=== PATIENT | male | born 1990 | race Caucasian/White ===

== ENCOUNTER 2020-04-09 07:42 | Emergency (ER) | payer MEDICAID ==
[~2020-04-09] VITALS: Ht 172.7 cm; Wt 76.7 kg
[2020-04-09] MEDS ORDERED: ONDANSETRON HCL/PF 4 MG/2 ML VIAL IVP ONE (08:00)
[2020-04-09] MEDS ORDERED: LORAZEPAM INJ 2 MG/ML VIAL IV ONE ×2 (08:00→10:30)
[2020-04-09] MEDS ORDERED: IV NS 0.9% 1,000 ML BAG IV ONE (08:00)
--- NOTE | 2020-04-09 08:00 | NUR ---
patient came in to the er c/o "woke up feeling anxious worse now feel nausea and have pain on chest". on room air, breathing evenly and unlabored. connected to the monitor and pulse ox. will continue to monitor accordingly.
[2020-04-09] MEDS ORDERED: ONDANSETRON HCL/PF 4 MG/2 ML VIAL ONE ×2 (08:12→09:34)
[2020-04-09] MEDS ORDERED: LORAZEPAM INJ 2 MG/ML VIAL ONE ×2 (08:13→10:02)
[2020-04-09 08:18] LABS: BASOPHILS % (AUTO) 0.3 % (0.0-2.0); EOSINOPHILS % (AUTO) 0.8 % (0.0-6.0); HEMATOCRIT 48 % (39-51); HEMOGLOBIN 16.4 g/dL (13.5-17.5); LYMPHOCYTES # (AUTO) 1.8 /CMM (0.8-4.8); LYMPHOCYTES % (AUTO) 13.3 % (20.0-44.0); MEAN CORPUSCULAR HGB CONC 34 g/dl (31.0-36.0); MEAN CORPUSCULAR VOLUME 89 fL (80-96); MONOCYTES # (AUTO) 0.7 /CMM (0.1-1.30); MONOCYTES % (AUTO) 5.5 % (2.0-12.0); NEUTROPHILS # (AUTO) 10.9 /CMM (1.8-8.9); NEUTROPHILS % (AUTO) 80.1 % (43.0-81.0); PLATELET COUNT (AUTO) 340 /CMM (150-450); RED BLOOD CELL COUNT(AUTO) 5.41 MIL/uL (4.5-6.0); WHITE BLOOD COUNT (AUTO) 13.6 K/uL (4.3-11.0)
[2020-04-09 08:25] LABS: CALCIUM, SERUM 8.9 mg/dL (8.5-10.1); POTASSIUM 3.2 mmol/L (3.5-5.1)
[2020-04-09] MEDS ORDERED: ONDANSETRON HCL/PF 4 MG/2 ML VIAL IV ONE (10:00)
[2020-04-09] MEDS ORDERED: PROCHLORPERAZINE EDISYLATE 10 MG/2 ML VIAL IVP ONE (11:00)
[2020-04-09] MEDS ORDERED: IV NS 0.9% 1,000 ML IV ONE (11:00)
[2020-04-09] MEDS ORDERED: PROCHLORPERAZINE EDISYLATE 10 MG/2 ML VIAL ONE (11:17)
[2020-04-09 12:19] VITALS: BP 101/66
--- NOTE | 2020-04-09 12:19 | NUR ---
Patient discharged to home in stable condition. Written and verbal after care instructions given. Patient verbalizes understanding of instruction.IV removed. Catheter intact and site benign. Pressure and 4x4 applied to site. No bleeding noted.
[2020-04-14] MEDS ORDERED: ONDA4TAB5 PO (07:53)
== END 2020-04-09 12:19 | disposition home or self-care (01) ==
LOC: ER 07:45
DX: F41.0 Panic disorder [episodic paroxysmal anxiety] (principal); R11.10 Vomiting, unspecified; R00.2 Palpitations; R06.4 Hyperventilation
CPT/HCPCS: 36415; 80048; 85025; 96361; 96374; 96375; 96376; 99284; J0780; J2060 ×2; J2405 ×2; J7030 ×2

== ENCOUNTER 2020-04-12 08:31 | Inpatient (IN) | payer MEDICAID ==
[~2020-04-12] VITALS: Ht 170.2 cm; Wt 73.0 kg
--- NOTE | 2020-04-12 08:38 | NUR ---
came in for nausea since 429. 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
[2020-04-12] MEDS ORDERED: METOCLOPRAMIDE HCL 10 MG/2 ML VIAL ONE (08:51)
[2020-04-12] MEDS ORDERED: LORAZEPAM INJ 2 MG/ML VIAL ONE (08:51)
[2020-04-12 08:57] LABS: BASOPHILS # (AUTO) 0.1 /CMM (0.0-0.2); BASOPHILS % (AUTO) 0.5 % (0.0-2.0); EOSINOPHILS % (AUTO) 0.3 % (0.0-6.0); HEMATOCRIT 51 % (39-51); HEMOGLOBIN 16.9 g/dL (13.5-17.5); LYMPHOCYTES # (AUTO) 1.6 /CMM (0.8-4.8); LYMPHOCYTES % (AUTO) 10.5 % (20.0-44.0); MEAN CORPUSCULAR HGB CONC 33 g/dl (31.0-36.0); MEAN CORPUSCULAR VOLUME 90 fL (80-96); MONOCYTES # (AUTO) 0.8 /CMM (0.1-1.30); MONOCYTES % (AUTO) 5.5 % (2.0-12.0); NEUTROPHILS # (AUTO) 12.7 /CMM (1.8-8.9); NEUTROPHILS % (AUTO) 83.2 % (43.0-81.0); PLATELET COUNT (AUTO) 365 /CMM (150-450); WHITE BLOOD COUNT (AUTO) 15.2 K/uL (4.3-11.0)
[2020-04-12] MEDS ORDERED: LORAZEPAM INJ 2 MG/ML VIAL IV ONE (09:00)
[2020-04-12] MEDS ORDERED: METOCLOPRAMIDE HCL 10 MG/2 ML VIAL IV ONE (09:00)
[2020-04-12] MEDS ORDERED: IV NS 0.9% 1,000 ML BAG IV ONE (09:00)
--- NOTE | 2020-04-12 09:06 | NUR ---
FATHER, ILENE SAENZ WANTS UPDATES, WHEN POSSIBLE [phone]
--- NOTE | 2020-04-12 09:08 | NUR ---
SUPERVISOR WATERPROOFING AT BEDSIDE FOR US
[2020-04-12 09:15] LABS: ALBUMIN 4.6 g/dL (3.4-5.0); BILIRUBIN,DIRECT 0.2 mg/dL (0.0-0.2); CREATININE 1.2 mg/dL (0.6-1.3); TOTAL PROTEIN, SERUM 7.8 g/dL (6.4-8.2)
[2020-04-12 09:16] LABS: POTASSIUM 2.7 mmol/L (3.5-5.1)
[2020-04-12] MEDS ORDERED: POTASSIUM CHLORIDE 20 MEQ TAB.PRT.SR PO ONE ×2 (09:26→09:30)
[2020-04-12] MEDS ORDERED: POTASSIUM CL. PREMIX PERIPHER. 100 ML ONE (09:26)
[2020-04-12] MEDS: POTASSIUM CL. PREMIX PERIPHER. 50 ML IV SCH ×2 (09:30→10:30)
--- NOTE | 2020-04-12 09:38 | NUR ---
PATIENT STILL FEELS NAUSEOUS, MD AWARE.
[2020-04-12] MEDS ORDERED: ONDANSETRON HCL/PF 4 MG/2 ML VIAL ONE ×2 (09:41→11:20)
--- NOTE | 2020-04-12 09:48 | NUR ---
URINE SAMPLE COLLECTED AND SENT TO LAB
[2020-04-12 09:55] LABS: APPEARANCE,URINE Clear (CLEAR); BILIRUBIN,URINE Negative (NEGATIVE); BLOOD, URINE Negative Ery/uL (NEGATIVE); COLOR,URINE Yellow (YELLOW); KETONES,URINE >=160 (NEGATIVE); LEUKOCYTE ESTERASE ,URINE Negative (NEGATIVE); NITRITE, URINE Negative (NEGATIVE); PROTEIN,URINE Negative (NEGATIVE); UGLUCOSE Negative (NEGATIVE); UROBILINOGEN,URINE 0.2 EU/dL (0.2)
[2020-04-12 09:59] LABS: BACTERIA,URINE None seen /HPF (None Seen); RBC,URINE 0-1 /HPF (0-2); SQUAMOUS EPITHELIAL CELL,UR Rare /HPF (None Seen); WBC,URINE 0-2 /HPF (0-3)
[2020-04-12] MEDS ORDERED: ONDANSETRON HCL/PF 4 MG/2 ML VIAL IV ONE ×2 (10:00→14:30)
--- NOTE | 2020-04-12 10:08 | NUR ---
epic paged. awaiting call back. dr camp.
--- NOTE | 2020-04-12 10:12 | NUR ---
nursing supp called for m/s bed.
[2020-04-12] MEDS ORDERED: DOXY20TA3 PO (10:19)
[2020-04-12] MEDS ORDERED: FLUO40CA49 PO (10:19)
[2020-04-12] MEDS ORDERED: MONT10TA22 PO (10:19)
[2020-04-12] MEDS ORDERED: FINA1TAB11 PO (10:19)
[2020-04-12] MEDS ORDERED: ALPR0.5T8 PO (10:19)
[2020-04-12] MEDS ORDERED: BUSP7.5T7 PO (10:19)
--- NOTE | 2020-04-12 10:19 | NUR ---
[facility] VIRUS SWAB DONE AND SENT TO LAB
[2020-04-12] MEDS ORDERED: Z GUARD REMEDY 2 OZ OINT TP PRN (11:00)
[2020-04-12] MEDS ORDERED: ALPRAZOLAM 0.5 MG TABLET PO PRN (11:00)
[2020-04-12] MEDS ORDERED: MAGNESIUM HYDROXIDE 30 ML UDC PO PRN (11:00)
[2020-04-12] MEDS ORDERED: MAG HYDROX/AL HYDROX/SIMETH 30 ML UDC PO PRN (11:00)
[2020-04-12] MEDS ORDERED: ACETAMINOPHEN 325 MG TABLET PO PRN (11:00)
--- NOTE | 2020-04-12 11:19 | NUR ---
PATIENT STILL FEELING NAUSEOUS, MADE MD AWARE, RECEIVED VERBAL ORDER OF ZOGRAN 4MG IVP. CARRIED OUT
[2020-04-12 11:46] LABS: CALCIUM, SERUM 7.9 mg/dL (8.5-10.1)
[2020-04-12 12:10] VITALS: BP 128/77
--- NOTE | 2020-04-12 12:27 | NUR ---
NURSING SUP CALLED FOR ROOM.
--- NOTE | 2020-04-12 12:31 | NUR ---
ROOM 316-1
--- NOTE | 2020-04-12 12:39 | NUR ---
REPORT GIVEN TO MARKOS ALVARADO OF [facility]
[2020-04-12] MEDS ORDERED: ONDANSETRON HCL/PF 4 MG/2 ML VIAL IV PRN (13:00)
[2020-04-12] MEDS ORDERED: IV NS 0.9% 1,000 ML IV ONE (13:00)
--- NOTE | 2020-04-12 13:10 | NUR ---
MS RN NOTES ADMITTED FROM EMERGENCY DEPARTMENT REPORT GIVEN BY JEC RN. PATIENT ALERT ORIENTED X 4. NO ACUTE DISTRESS NOTED. IV ACCESS PATENT AND INTACT. ORIENTED TO THE ROOM. NEEDS ATTENDED AND ANTICIPATED. SAFETY MEASURES IN PLACE. SHOW HOW TO USE CALL LIGHT, PLACED WITHIN REACH. WILL CONTINUE TO MONITOR ACCORDINGLY.
[2020-04-12 16:00] VITALS: BP 129/79
[2020-04-12] MEDS ORDERED: DOXYCYCLINE HYCLATE 20 MG PO SCH (17:00)
[2020-04-12] MEDS: busPIRone 5 MG TABLET PO SCH (17:00)
--- NOTE | 2020-04-12 17:40 | NUR ---
MS RN NOTES PATIENT SEEN AND EVALUATED BY DR SUSHILA MCCARTNEY WITH NEW ORDERS TO MODIFY CURRENT DIET TO MAY HAVE ICE CHIPS MAY ADVANCE DIET TOLERATED START WITH CLEAR LIQUID WHEN TOLERATING ICE CHIPS AND Restoril 15 MG PO HS PRN, ORDERS CLARIFIED AND READ BACK WITH MD, NOTED AND CARRIED OUT.
[2020-04-12] MEDS ORDERED: TEMAZEPAM 15 MG CAPSULE PO PRN (18:00)
--- NOTE | 2020-04-12 19:00 | NUR ---
MS RN NOTES PATIENT IN BED ALERT ORIENTED X 4. NO ACUTE DISTRESS NOTED. BREATHING UNLABORED. IV ACCESS PATENT AND INTACT, NO REDNESS, NO SWELLING NOTED. NEEDS ATTENDED AND ANTICIPATED. KEPT COMFORTABLE. SAFETY MEASURES IN PLACE. CALL LIGHT WITHIN REACH. WILL ENDORSE TO NIGHT FOR CONTINUITY OF CARE.
--- NOTE | 2020-04-12 19:20 | NUR ---
MS RN OPENING NOTES PATIENT AWAKE IN BED. A/OX4. ON RA. NO C/O SOB OR PAIN. PATIENT C/O OF SLIGHT NAUSEA. IV PRESENT ON LEFT AC, SIZE 18, INTACT & PATENT, HEP LOCKED. IV PRESENT ON RIGHT AC, SIZE 20, INTACT & PATENT HEP LOCKED. SAFETY MEASURES IN PLACE AND PATIENT'S NEEDS MET. BED LOCKED, SIDE RAILS X2, CALL LIGHT WITHIN REACH. WILL CONTINUE TO MONITOR.
[2020-04-12] MEDS: ONDANSETRON HCL/PF 4 MG/2 ML VIAL IVP PRN (19:52)
[2020-04-12 20:00] VITALS: BP 134/80
[2020-04-12] MEDS: METOCLOPRAMIDE HCL 10 MG/2 ML VIAL IV PRN (21:56)
[2020-04-13 05:59] LABS: BASOPHILS % (AUTO) 0.2 % (0.0-2.0); EOSINOPHILS % (AUTO) 0.7 % (0.0-6.0); HEMATOCRIT 45 % (39-51); HEMOGLOBIN 15.1 g/dL (13.5-17.5); LYMPHOCYTES # (AUTO) 2.5 /CMM (0.8-4.8); LYMPHOCYTES % (AUTO) 25.8 % (20.0-44.0); MEAN CORPUSCULAR HGB CONC 33 g/dl (31.0-36.0); MEAN CORPUSCULAR VOLUME 89 fL (80-96); MONOCYTES # (AUTO) 0.9 /CMM (0.1-1.30); MONOCYTES % (AUTO) 9.4 % (2.0-12.0); NEUTROPHILS # (AUTO) 6.2 /CMM (1.8-8.9); NEUTROPHILS % (AUTO) 63.9 % (43.0-81.0); PLATELET COUNT (AUTO) 320 /CMM (150-450); RED BLOOD CELL COUNT(AUTO) 5.06 MIL/uL (4.5-6.0); WHITE BLOOD COUNT (AUTO) 9.6 K/uL (4.3-11.0)
[2020-04-13 06:39] LABS: CALCIUM, SERUM 8.7 mg/dL (8.5-10.1); CREATININE 0.9 mg/dL (0.6-1.3); MAGNESIUM 2.4 mg/dL (1.8-2.4); PHOSPHORUS 3.4 mg/dL (2.5-4.9)
--- NOTE | 2020-04-13 07:20 | NUR ---
MS RN NOTES PATIENT IN BED ALERT ORIENTED X 4. NO ACUTE DISTRESS NOTED. BREATHING UNLABORED. IV ACCESS PATENT AND INTACT, NO REDNESS, NO SWELLING NOTED. SAFETY MEASURES IN PLACE. CALL LIGHT WITHIN REACH. WILL CONTINUE TO MONITOR ACCORDINGLY.
--- NOTE | 2020-04-13 07:48 | NUR ---
MS RN CLOSING NOTES PATIENT AWAKE IN BED. A/OX4. STABLE ON RA. REMAINED STABLE DURING SHIFT. NO C/O SOB, PAIN, N/V AT THIS TIME. SAFETY MEASURES IN PLACE AND PATIENT'S NEEDS MET. WILL ENDORSE TO DAY SHIFT NURSE PLAN OF CARE.
--- NOTE | 2020-04-13 07:52 | NUR ---
MS RN NOTES PATIENT SEEN AND EVALUATED BY DR SUSHILA MCCARTNEY WITH NEW ORDERS MADE TO CHANGE CURRENT DIET TO CLEAR LIQUIDS , MAY ADVANCE DIET TOLERATED. ORDERS CLARIFIED AND READ BACK WITH MD, NOTED AND CARRIED OUT.
[2020-04-13 08:00] VITALS: BP 121/71
--- NOTE | 2020-04-13 08:30 | NUR ---
MS RN NOTES PATIENT ATE BREAKFAST, TOLERATING CLEAR LIQUID DIET, NO VOMITING , NO NAUSEA NOTED. DENIED ANY PAIN AT THIS TIME. WILL CONTINUE TO MONITOR PATIENT.
[2020-04-13] MEDS: MONTELUKAST SODIUM (10MG) 10 MG TABLET PO SCH (09:00)
[2020-04-13] MEDS: FLUOXETINE HCL 20 MG CAPSULE PO SCH (09:00)
[2020-04-13] MEDS: busPIRone 5 MG TABLET PO SCH ×2 (09:00→17:00)
--- NOTE | 2020-04-13 09:00 | NUR ---
MS RN NOTES PATIENT REFUSED AM MEDICATIONS BUSPAR, PROZAC AND SINGULAIR DESPITE OF EXPLANATION OF RISKS AND BENEFITS.
[2020-04-13] MEDS: POTASSIUM CL. PREMIX PERIPHER. 50 ML IV SCH ×6 (09:01→15:04)
[2020-04-13] MEDS: METOCLOPRAMIDE HCL 10 MG/2 ML VIAL IV PRN ×2 (15:09→22:53)
[2020-04-13 16:00] VITALS: BP 145/85
--- NOTE | 2020-04-13 17:00 | NUR ---
MS RN NOTES PATIENT REFUSED MEDICATION BUSPAR DESPITE OF EXPLANATION OF RISKS AND BENEFITS.
--- NOTE | 2020-04-13 19:00 | NUR ---
MS RN NOTES PATIENT IN BED ALERT ORIENTED X 4. NO ACUTE DISTRESS NOTED. BREATHING UNLABORED. IV ACCESS PATENT AND INTACT, NO REDNESS, NO SWELLING NOTED. NEEDS ATTENDED AND ANTICIPATED. KEPT COMFORTABLE. HEAD OF BED ELEVATED. SAFETY MEASURES IN PLACE. CALL LIGHT WITHIN REACH. WILL ENDORSE TO NIGHT FOR CONTINUITY OF CARE
[2020-04-13] MEDS: ONDANSETRON HCL/PF 4 MG/2 ML VIAL IVP PRN (19:48)
--- NOTE | 2020-04-13 19:48 | NUR ---
MS RN NOTE: Patient complains of nausea. Administered PRN Zofran per MD order. Will monitor, follow up, and reassess.
[2020-04-13 20:00] VITALS: BP 128/88
--- NOTE | 2020-04-13 20:00 | NUR ---
MS RN OPENING NOTE: Received patient in bed complaining of nausea. Administered PRN Zofran per MD order. Patient AOX4 and compliant. Noted left AC 18g IC access. Flushes well, patent, no redness, or infiltration. Patient on room air. No signs of distress or SOB. Breathing unlabored and equal. Safety precaution in place. Bed in lowest position, side rails x 2 are up, bed is locked, and call light is within reach. Will continue care of plan and follow up and reassess nausea.
--- NOTE | 2020-04-13 21:29 | NUR ---
MS RN NOTE: Reassessed Zofran administration. Patient stated feeling better and less nausea. Will continue to monitor.
--- NOTE | 2020-04-13 22:53 | NUR ---
MS RN NOTE: Patient complains of difficulty sleeping. Administered PRN Restoril per MD order. Will continue to monitor.
--- NOTE | 2020-04-13 22:53 | NUR ---
MS RN NOTE: Patient complains of nausea. Administered Reglan per MD order. Will continue to monitor.
[2020-04-14] MEDS: ONDANSETRON HCL/PF 4 MG/2 ML VIAL IVP PRN (03:05)
--- NOTE | 2020-04-14 03:05 | NUR ---
MS RN NOTE: Patient complains of nausea. Administered PRN Zofran per MD order. Will monitor, follow up, and reassess.
--- NOTE | 2020-04-14 03:35 | NUR ---
MS RN NOTE: Reassessed Zofran administration. Patient stated feeling better and less nausea. Will continue to monitor.
--- NOTE | 2020-04-14 05:30 | NUR ---
MS RN NOTE: Patient complains of tossing and turning and verbalizes anxiety. Notified Sandra HERRERA. Per MD order Xanax 0.5mg po once. Read back order and carried out.
[2020-04-14] MEDS ORDERED: ALPRAZOLAM 0.25 MG TABLET PO ONE (06:00)
--- NOTE | 2020-04-14 06:30 | NUR ---
MS RN NOTE: Reassess Xanax administration. Patient stated medication was effective and it relieved anxiety.Endorsed to next shift.
--- NOTE | 2020-04-14 07:00 | NUR ---
MS RN CLOSING NOTE: Patient in bed comfortably. Patient denies pain or discomfort at this time. Patient shows no signs of distress or SOB. Breathing unlabored and equal. Safety precaution in place. Bed in lowest position, side rails x 2 are up, bed is locked, and call light is within reach. Will endorse to morning nurse.
[2020-04-14 07:34] LABS: CREATININE 0.9 mg/dL (0.6-1.3); POTASSIUM 4.1 mmol/L (3.5-5.1)
[2020-04-14 07:45] LABS: BASOPHILS % (AUTO) 0.2 % (0.0-2.0); EOSINOPHILS % (AUTO) 0.1 % (0.0-6.0); HEMATOCRIT 47 % (39-51); HEMOGLOBIN 15.7 g/dL (13.5-17.5); LYMPHOCYTES # (AUTO) 1.4 /CMM (0.8-4.8); LYMPHOCYTES % (AUTO) 15.1 % (20.0-44.0); MEAN CORPUSCULAR HGB CONC 33 g/dl (31.0-36.0); MEAN CORPUSCULAR VOLUME 90 fL (80-96); MONOCYTES # (AUTO) 0.7 /CMM (0.1-1.30); MONOCYTES % (AUTO) 6.9 % (2.0-12.0); NEUTROPHILS # (AUTO) 7.4 /CMM (1.8-8.9); NEUTROPHILS % (AUTO) 77.7 % (43.0-81.0); PLATELET COUNT (AUTO) 354 /CMM (150-450); RED BLOOD CELL COUNT(AUTO) 5.23 MIL/uL (4.5-6.0); WHITE BLOOD COUNT (AUTO) 9.6 K/uL (4.3-11.0)
[2020-04-14] MEDS ORDERED: ONDA4TAB5 PO (07:53)
[2020-04-14 08:02] VITALS: BP 113/72
--- NOTE | 2020-04-14 08:30 | NUR ---
MS RN NOTES PATIENT SEEN AND EVALUATED BY DR. MCCARTNEY, PATIENT CLEARED FOR DISCHARGE.
[2020-04-14] MEDS: busPIRone 5 MG TABLET PO SCH ×2 (08:41→08:47)
[2020-04-14] MEDS: FLUOXETINE HCL 20 MG CAPSULE PO SCH ×2 (08:42→08:47)
[2020-04-14] MEDS: MONTELUKAST SODIUM (10MG) 10 MG TABLET PO SCH ×2 (08:42→08:47)
--- NOTE | 2020-04-14 10:00 | NUR ---
MS RN NOTES PATIENT DISCHARGED HOME IN STABLE CONDITION. DISCHARGE TEACHING PROVIDED, VERBALIZED UNDERSTANDING. PRESCRIPTION GIVEN TO PATIENT. PATIENT INSTRUCTED BY MD TO STAY ON CLEAR LIQUIDS UNTIL NAUSEA SUBSIDES. ALL BELONGINGS ACCOUNTED FOR. BELONGING LIST SIGNED. PERIPHERAL IV REMOVED WITH MINIMAL READING. ID BAND REMOVED. PATIENT ESCORTED TO CAR.
[2020-04-15] MEDS ORDERED: LORAZEPAM INJ 2 MG/ML VIAL ONE ×2 (12:58→13:03)
[2020-04-15] MEDS ORDERED: ONDANSETRON HCL/PF 4 MG/2 ML VIAL ONE ×2 (12:58→13:03)
== END 2020-04-14 10:00 | disposition home or self-care (01) | DRG 425 ==
LOC: ER 08:35 → MED 12:37
PROVIDERS: ADMIT Family Medicine; ATTEND Family Medicine
DX: E87.6 Hypokalemia (principal); D72.829 Elevated white blood cell count, unspecified; F41.9 Anxiety disorder, unspecified; J45.909 Unspecified asthma, uncomplicated; R11.15 Cyclical vomiting syndrome unrelated to migraine; R73.9 Hyperglycemia, unspecified; F12.10 Cannabis abuse, uncomplicated
CPT/HCPCS: 36415; 76705-TC; 80048-TC; 80061-TC; 80076-TC; 80305; 81000-TC; 83690-TC; 83735-TC; 84100-TC; 84132-TC; 85025-TC; 87081-TC; G0378; G0480; J2060; J2405; J2765; J3480; J7030; J7040